=== PATIENT | female | born 1990 | race Caucasian/White ===

== ENCOUNTER 2016-12-11 02:15 | Emergency (ER) | payer BC ==
[2016-12-11] MEDS ORDERED: Ketorolac 30 MG/ML SDV IVPUSH ONE (02:24)
[2016-12-11] MEDS ORDERED: Sodium Chloride 0.9% 1,000 ML IV ONE ×3 (02:24→08:03)
[2016-12-11] MEDS ORDERED: Ondansetron 4 MG/2 ML SDV IVPUSH ONE ×2 (02:24→04:10)
[2016-12-11] MEDS ORDERED: HYDROmorphone 1 MG/ML Syringe IVPUSH ONE ×3 (02:24→06:41)
--- NOTE | 2016-12-11 02:35 | EDM.PDOC ---
<Petar Michelle J - Last Filed: 12/11/16 02:34> ED HPI GENERAL MEDICAL PROBLEM - General Chief Complaint: Flank Pain Stated Complaint: SHARP SIDE PAINS Time Seen by Provider: 12/11/16 02:33 - History of Present Illness INITIAL COMMENTS - FREE TEXT/NARRATIVE: HISTORY AND PHYSICAL: History of present illness: Patient is 26-year-old white female sensory concern of acute right flank pain started suddenly approximately 1 hour prior to arrival associated nausea she denies fever chills denies trauma denies history of urolithiasis Review of systems: As per history of present illness and below otherwise all systems reviewed and negative. Past medical history: As per history of present illness and as reviewed below otherwise noncontributory. Surgical history: As per history of present illness and as reviewed below otherwise noncontributory. Social history: No reported history of drug or alcohol abuse. Family history: As per history of present illness and as reviewed below otherwise noncontributory. Physical exam: HEENT: Atraumatic, normocephalic, pupils reactive, negative for conjunctival pallor or scleral icterus, mucous membranes moist, throat clear, neck supple, nontender, trachea midline. Lungs: Clear to auscultation, breath sounds equal bilaterally, chest nontender. Heart: S1S2, regular, negative for clicks, rubs, or JVD. Abdomen: Soft, nondistended, nontender. Negative for masses or hepatosplenomegaly. Right-sided costovertebral tenderness. Pelvis: Stable nontender. Genitourinary: Deferred. Rectal: Deferred. Extremities: Atraumatic, negative for cords or calf pain. Neurovascular unremarkable. Neuro: Awake, alert, oriented. Cranial nerves II through XII unremarkable. Cerebellum unremarkable. Motor and sensory unremarkable throughout. Exam nonfocal. Diagnostics: CBC CMP UA and UDS CT abdomen and pelvis Therapeutics: Normal saline liter bolus portal 30 mg IV Zofran 4 mg IV Dilaudid 1 mg IV Impression: #1 acute right flank pain Definitive disposition and diagnosis as appropriate pending reevaluation and review of above. Right Flank Pain Score (Numeric/FACES): 10 - Related Data Allergies Allergy/AdvReac Type Severity Reaction Status Date / Time No Known Allergies Allergy Verified 12/11/16 02:18 Home Meds: Home Meds Nitrofurantoin Macrocrystal [Macrodantin] 100 mg PO BID #20 capsule 12/11/16 [Rx ] Tamsulosin HCl [Flomax] 0.4 mg PO DAILY #7 cap.er.24h 12/11/16 [Rx] traMADol [Ultram] 50 mg PO Q8H PRN #10 tablet 12/11/16 [Rx] Past Medical History HEENT History: Reports: None Cardiovascular History: Reports: None Respiratory History: Reports: None Gastrointestinal History: Reports: None Genitourinary History: Reports: None CAMPUS DEAN History: Reports: Musculoskeletal History: Reports: None Neurological History: Reports: None Psychiatric History: Reports: None Endocrine/Metabolic History: Reports: None Hematologic History: Reports: None Immunologic History: Reports: None Oncologic (Cancer) History: Reports: None Dermatologic History: Reports: None - Infectious Disease History Infectious Disease History: Reports: Chicken Pox - Past Surgical History Head Surgeries/Procedures: Reports: None Cardiovascular Surgical History: Reports: None Female Surgical History: Reports: Section Musculoskeletal Surgical History: Reports: None Oncologic Surgical History: Reports: None Social & Family History - Tobacco Use Smoking Status *Q: Never Smoker - Caffeine Use Caffeine Use: Reports: None - Recreational Drug Use Recreational Drug Use: No ED ROS GENERAL - Review of Systems Review Of Systems: ROS reveals no pertinent complaints other than HPI. ED EXAM, GENERAL - Physical Exam Exam: See Below (See dictation) Course - Vital Signs Last Recorded V/S: Last Vital Signs Temp 36.1 C 12/11/16 06:35 Pulse 75 12/11/16 06:35 Resp 17 12/11/16 06:35 BP 154/84 H 12/11/16 06:35 Pulse Ox 100 12/11/16 06:35 - Orders/Labs/Meds Orders: Active Orders 24 hr Category Date Time Status Abdomen Pelvis wo Cont [CT] Stat Exams 12/11/16 02:30 Taken CULTURE URINE [RM] Stat Lab 12/11/16 08:31 Ordered UA W/MICROSCOPIC [URIN] Stat Lab 12/11/16 08:12 Results Sodium Chloride 0.9% [Normal Saline] 1,000 ml Med 12/11/16 08:03 Active IV .Bolus Medication Orders Sodium Chloride (Normal Saline) 1,000 mls @ 999 mls/hr IV .Bolus ONE Stop: 12/11/16 09:03 Labs: Laboratory Tests 12/11/16 12/11/16 12/11/16 Range/Units 02:25 02:25 02:25 WBC 10.83 (4.0-11.0) K/uL RBC 4.37 (4.30-5.90) M/uL Hgb 12.8 (12.0-16.0) g/dL Hct 39.6 (36.0-46.0) % MCV 90.6 (80.0-98.0) fL MCH 29.3 (27.0-32.0) pg MCHC 32.3 (31.0-37.0) g/dL RDW Std Deviation 44.1 (28.0-62.0) fl RDW Coeff of Mitchel 13 (11.0-15.0) % Plt Count 367 (150-400) K/uL MPV 9.90 (7.40-12.00) fL Neut % (Auto) 54.3 (48.0-80.0) % Lymph % (Auto) 37.3 (16.0-40.0) % Upson % (Auto) 6.2 (0.0-15.0) % Eos % (Auto) 1.9 (0.0-7.0) % Baso % (Auto) 0.3 (0.0-1.5) % Neut # (Auto) 5.9 H (1.4-5.7) K/uL Lymph # (Auto) 4.0 H (0.6-2.4) K/uL Upson # (Auto) 0.7 (0.0-0.8) K/uL Eos # (Auto) 0.2 (0.0-0.7) K/uL Baso # (Auto) 0.0 (0.0-0.1) K/uL Nucleated RBC % 0.0 /100WBC Nucleated RBCs # 0 K/uL Sodium 141 (136-146) mmol/L Potassium 3.3 L (3.5-5.1) mmol/L Chloride 108 (98-110) mmol/L Carbon Dioxide 21 (21-31) mmol/L BUN 17 (6.0-23.0) mg/dL Creatinine 0.7 (0.6-1.5) mg/dL Est Cr Clr Drug Dosing 99.86 mL/min Estimated GFR (MDRD) > 60.0 ml/min Glucose 100 (60-110) mg/dL Calcium 9.1 (8.8-10.8) mg/dL Total Bilirubin 0.2 (0.1-1.5) mg/dL AST 17 (5-40) IU/L ALT 17 (8-54) IU/L Alkaline Phosphatase 116 (40-150) Total Protein 7.2 (6.0-8.0) g/dL Albumin 4.1 (3.5-5.0) g/dL Globulin 3.1 (2.0-3.5) g/dL Albumin/Globulin Ratio 1.3 (1.3-2.8) HCG, Qual NEGATIVE (NEG) Urine Color Urine Appearance Urine pH (5.0-8.0) Ur Specific [place] (1.001-1.035) Urine Protein (NEGATIVE) mg/dL Urine Glucose (UA) (NEGATIVE) mg/dL Urine Ketones (NEGATIVE) mg/dL Urine Occult Blood (NEGATIVE) Urine Nitrite (NEGATIVE) Urine Bilirubin (NEGATIVE) Urine Urobilinogen (<2.0) EU/dL Ur Leukocyte Esterase (NEGATIVE) Urine Opiates Screen (NEGATIVE) Ur Oxycodone Screen (NEGATIVE) Urine Methadone Screen (NEGATIVE) Ur Barbiturates Screen (NEGATIVE) Ur Phencyclidine Scrn (NEGATIVE) Ur Amphetamine Screen (NEGATIVE) U Methamphetamines Scrn (NEGATIVE) U Benzodiazepines Scrn (NEGATIVE) U Cocaine Metab Screen (NEGATIVE) U Marijuana (THC) Screen (NEGATIVE) 12/11/16 12/11/16 Range/Units 03:53 08:12 WBC (4.0-11.0) K/uL RBC (4.30-5.90) M/uL Hgb (12.0-16.0) g/dL Hct (36.0-46.0) % MCV (80.0-98.0) fL MCH (27.0-32.0) pg MCHC (31.0-37.0) g/dL RDW Std Deviation (28.0-62.0) fl RDW Coeff of Mitchel (11.0-15.0) % Plt Count (150-400) K/uL MPV (7.40-12.00) fL Neut % (Auto) (48.0-80.0) % Lymph % (Auto) (16.0-40.0) % Upson % (Auto) (0.0-15.0) % Eos % (Auto) (0.0-7.0) % Baso % (Auto) (0.0-1.5) % Neut # (Auto) (1.4-5.7) K/uL Lymph # (Auto) (0.6-2.4) K/uL Upson # (Auto) (0.0-0.8) K/uL Eos # (Auto) (0.0-0.7) K/uL Baso # (Auto) (0.0-0.1) K/uL Nucleated RBC % /100WBC Nucleated RBCs # K/uL Sodium (136-146) mmol/L Potassium (3.5-5.1) mmol/L Chloride (98-110) mmol/L Carbon Dioxide (21-31) mmol/L BUN (6.0-23.0) mg/dL Creatinine (0.6-1.5) mg/dL Est Cr Clr Drug Dosing mL/min Estimated GFR (MDRD) ml/min Glucose (60-110) mg/dL Calcium (8.8-10.8) mg/dL Total Bilirubin (0.1-1.5) mg/dL AST (5-40) IU/L ALT (8-54) IU/L Alkaline Phosphatase (40-150) Total Protein (6.0-8.0) g/dL Albumin (3.5-5.0) g/dL Globulin (2.0-3.5) g/dL Albumin/Globulin Ratio (1.3-2.8) HCG, Qual (NEG) Urine Color YELLOW Urine Appearance CLEAR Urine pH 5.5 (5.0-8.0) Ur Specific [place] >= 1.030 (1.001-1.035) Urine Protein 100 (NEGATIVE) mg/dL Urine Glucose (UA) NEGATIVE (NEGATIVE) mg/dL Urine Ketones NEGATIVE (NEGATIVE) mg/dL Urine Occult Blood LARGE H (NEGATIVE) Urine Nitrite POSITIVE H (NEGATIVE) Urine Bilirubin SMALL H (NEGATIVE) Urine Urobilinogen 0.2 (<2.0) EU/dL Ur Leukocyte Esterase NEGATIVE (NEGATIVE) Urine Opiates Screen NEGATIVE (NEGATIVE) Ur Oxycodone Screen NEGATIVE (NEGATIVE) Urine Methadone Screen NEGATIVE (NEGATIVE) Ur Barbiturates Screen NEGATIVE (NEGATIVE) Ur Phencyclidine Scrn NEGATIVE (NEGATIVE) Ur Amphetamine Screen NEGATIVE (NEGATIVE) U Methamphetamines Scrn NEGATIVE (NEGATIVE) U Benzodiazepines Scrn NEGATIVE (NEGATIVE) U Cocaine Metab Screen NEGATIVE (NEGATIVE) U Marijuana (THC) Screen NEGATIVE (NEGATIVE) Meds: Medications Generic Name Dose Route Start Last Admin Trade Name Freq PRN Reason Stop Dose Admin Sodium Chloride 1,000 mls @ 999 mls/hr 12/11/16 08:03 Normal Saline IV 12/11/16 09:03 .Bolus ONE Discontinued Medications Generic Name Dose Route Start Last Admin Trade Name Freq PRN Reason Stop Dose Admin Hydromorphone HCl 1 mg 12/11/16 02:24 12/11/16 02:33 Dilaudid IVPUSH 12/11/16 02:25 1 mg ONETIME ONE Administration Hydromorphone HCl 1 mg 12/11/16 04:10 12/11/16 04:15 Dilaudid IVPUSH 12/11/16 04:11 1 mg ONETIME ONE Administration Hydromorphone HCl 1 mg 12/11/16 05:13 12/11/16 05:19 Dilaudid IVPUSH 12/11/16 05:14 1 mg ONETIME ONE Administration Hydromorphone HCl 1 mg 12/11/16 06:41 12/11/16 07:37 Dilaudid IVPUSH 12/11/16 06:42 Not Given ONETIME ONE Sodium Chloride 1,000 mls @ 999 mls/hr 12/11/16 02:24 12/11/16 02:31 Normal Saline IV 12/11/16 03:24 999 mls/hr .Bolus ONE Administration Sodium Chloride 1,000 mls @ 500 mls/hr 12/11/16 04:12 12/11/16 04:15 Normal Saline IV 12/11/16 06:11 500 mls/hr .Bolus ONE Administration Ketorolac Tromethamine 30 mg 12/11/16 02:24 12/11/16 02:32 Toradol IVPUSH 12/11/16 02:25 30 mg ONETIME ONE Administration Metoclopramide HCl 10 mg 12/11/16 08:03 Reglan IV 12/11/16 08:04 ONETIME ONE Ondansetron HCl 4 mg 12/11/16 02:24 12/11/16 02:32 Zofran IVPUSH 12/11/16 02:25 4 mg ONETIME ONE Administration Ondansetron HCl 4 mg 12/11/16 04:10 12/11/16 04:16 Zofran IVPUSH 12/11/16 04:11 4 mg ONETIME ONE Administration Tamsulosin HCl 0.4 mg 12/11/16 05:13 12/11/16 05:19 Flomax PO 12/11/16 05:14 0.4 mg ONETIME ONE Administration Departure - Departure Disposition: Home, Self-Care 01 Clinical Impression: Hydronephrosis with urinary obstruction due to ureteral calculus, UTI, Urinary tract infectious disease - Discharge Information Prescriptions: Nitrofurantoin Macrocrystal [Macrodantin] 100 mg PO BID #20 capsule Tamsulosin HCl [Flomax] 0.4 mg PO DAILY #7 cap.er.24h traMADol [Ultram] 50 mg PO Q8H PRN #10 tablet PRN Reason: Pain Referrals: PCP,None [Primary Care Provider] - Renan Martinez MD [Physician] - Forms: ED Department Discharge Additional Instructions: The following information is given to patients seen in the emergency department who are being discharged to home. This information is to outline your options for follow-up care. We provide all patients seen in our emergency department with a follow-up referral. The need for follow-up, as well as the timing and circumstances, are variable depending upon the specifics of your emergency department visit. If you don't have a primary care physician on staff, we will provide you with a referral. We always advise you to contact your personal physician following an emergency department visit to inform them of the circumstance of the visit and for follow-up with them and/or the need for any referrals to a consulting specialist. The emergency department will also refer you to a specialist when appropriate. This referral assures that you have the opportunity for follow-up care with a specialist. All of these measure are taken in an effort to provide you with optimal care, which includes your follow-up. Under all circumstances we always encourage you to contact your private physician who remains a resource for coordinating your care. When calling for follow-up care, please make the office aware that this follow-up is from your recent emergency room visit. If for any reason you are refused follow-up, please contact the [facility] Emergency Department at and asked to speak to the emergency department charge nurse. Take Flomax, tramadol and Bactrim directed follow-up with Dr. Martinez is week, return to ED if symptoms change or worsen. [facility] Specialty Care - Urology [address] [place] [id number] - My Orders Last 24 Hours: My Active Orders 12/11/16 08:03 Sodium Chloride 0.9% [Normal Saline] 1,000 ml IV .Bolus 12/11/16 08:31 CULTURE URINE [RM] Stat - Assessment/Plan Last 24 Hours: My Active Orders 12/11/16 08:03 Sodium Chloride 0.9% [Normal Saline] 1,000 ml IV .Bolus 12/11/16 08:31 CULTURE URINE [RM] Stat <Dacia Cavanaugh - Last Filed: 12/11/16 08:34> Departure - Departure Time of Disposition: 07:27 Condition: Good - My Orders Last 24 Hours: My Active Orders 12/11/16 08:03 Sodium Chloride 0.9% [Normal Saline] 1,000 ml IV .Bolus 12/11/16 08:31 CULTURE URINE [RM] Stat - Assessment/Plan Last 24 Hours: My Active Orders 12/11/16 08:03 Sodium Chloride 0.9% [Normal Saline] 1,000 ml IV .Bolus 12/11/16 08:31 CULTURE URINE [RM] Stat
[2016-12-11 03:01] LABS: CHLORIDE,CL 108 mmol/L (98-110); SODIUM,NA 141 mmol/L (136-146)
[2016-12-11] MEDS ORDERED: HYDROmorphone 2 MG/ML Syringe IVPUSH ONE (04:10)
[2016-12-11] MEDS ORDERED: Tamsulosin 0.4 MG Cap.ER PO ONE (05:13)
[2016-12-11] MEDS ORDERED: Metoclopramide 10 MG/2 ML SDV IV ONE (08:03)
--- NOTE | 2016-12-11 18:29 | CT ---
EXAM DATE: 12/11/16 PATIENT'S AGE: 26 Patient: ADONAY RUFFS DALE Facility: [place], [place] Site . Site : 1990 Study: CT Abdomen/Pelvis [id number] 3:39:19 AM Ordering Physician: Doctor Diamond Final Report: INDICATION: Right flank pain TECHNIQUE: CT abdomen and pelvis without contrast. COMPARISON: None FINDINGS: Lower chest: Unremarkable. Liver: Unremarkable. Spleen: Unremarkable. Pancreas: Unremarkable. Gallbladder and bile ducts: Unremarkable. Kidneys: 2 millimeter obstructing calculus right UVJ with moderate hydronephrosis. Adrenal glands: Unremarkable. GI tract: Unremarkable. Appendix is normal. Vascular structures: Unremarkable. Lymph nodes: Unremarkable. Miscellaneous: Unremarkable. No free air or significant free fluid. Pelvic Organs: Unremarkable. Bones: Unremarkable for age. IMPRESSION: 2 millimeter obstructing calculus right UVJ with moderate hydronephrosis. Dictated by Scott Cabral MD @ 12/11/2016 3:58:48 AM Dictated by: Scott Cabral MD @ 12/11/2016 03:59:02 (Electronic Signature) Report Signed by Proxy. [facility]
== END 2016-12-11 08:50 | disposition home or self-care (01) ==
LOC: MW.ED 02:15
DX: N13.2 Hydronephrosis with renal and ureteral calculous obstruction (principal); N39.0 Urinary tract infection, site not specified; Z79.899 Other long term (current) drug therapy
CPT/HCPCS: 74176; 80053; 80305; 81001; 84703; 85025; 87086; 96361; 96374; 96375; 96376; 99284; A9270; J1170; J1885; J2405; J7040; 87088; 87186

== ENCOUNTER 2017-09-06 05:01 | Inpatient (IN) | payer BC ==
[2017-09-06] MEDS ORDERED: Sodium Chloride 0.9% 10 ML Syringe FLUSH PRN (05:26)
[2017-09-06] MEDS ORDERED: Sodium Chloride 0.9% 2.5 ML Syringe FLUSH PRN (05:26)
[2017-09-06] MEDS ORDERED: ceFAZolin 2 GM in Premix Bag 1 BAG IV ONE (05:26)
[2017-09-06] MEDS ORDERED: Oxytocin/0.9 % Sodium Chloride 30 UNIT/500 ML BAG IV SCH (05:30)
[2017-09-06] MEDS ORDERED: Citric Acid/Sodium Citrate Solution 30 ML Cup PO SCH (05:30)
[2017-09-06] MEDS: Lactated Ringers 1,000 ML IV SCH ×4 (06:45→20:14)
[2017-09-06] MEDS ORDERED: Oxytocin 10 Units/1 ML SDV ONE (07:01)
[2017-09-06] MEDS ORDERED: Morphine PF 1 MG/ML Amp ONE (07:01)
[2017-09-06] MEDS ORDERED: Ondansetron 4 MG/2 ML SDV ONE (07:01)
--- NOTE | 2017-09-06 07:36 | PCM.PREANE ---
Preanesthetic Assessment - Anesthesia/Transfusion/Family Hx Anesthesia History: Prior Anesthesia Without Reaction Family History of Anesthesia Reaction: No Transfusion History: No Prior Transfusion(s) - Review of Systems General: No Symptoms Pulmonary: No Symptoms Cardiovascular: No Symptoms Gastrointestinal: No Symptoms Neurological: No Symptoms - Physical Assessment NPO Status Date: 09/05/17 Vital Signs: Last Vital Signs Temp 36.8 C 09/06/17 05:26 Pulse Resp BP Pulse Ox Height: 1.6 m Weight: 102.512 kg ASA Class: 2 Mental Status: Alert & Oriented x3 Airway Class: Mallampati = 1 Dentition: Reports: Normal Dentition ROM/Head Extension: Full Lungs: Clear to Auscultation, Normal Respiratory Effort Cardiovascular: Regular Rate, Regular Rhythm - Lab Values: Laboratory Last Values WBC 8.34 K/uL (4.0-11.0) 09/06/17 05:53 RBC 3.80 M/uL (4.30-5.90) L 09/06/17 05:53 Hgb 10.8 g/dL (12.0-16.0) L 09/06/17 05:53 Hct 33.1 % (36.0-46.0) L 09/06/17 05:53 MCV 87.1 fL (80.0-98.0) 09/06/17 05:53 MCH 28.4 pg (27.0-32.0) 09/06/17 05:53 MCHC 32.6 g/dL (31.0-37.0) 09/06/17 05:53 RDW Std Deviation 43.4 fl (28.0-62.0) 09/06/17 05:53 RDW Coeff of Mitchel 14 % (11.0-15.0) 09/06/17 05:53 Plt Count 222 K/uL (150-400) 09/06/17 05:53 MPV 11.30 fL (7.40-12.00) 09/06/17 05:53 Nucleated RBC % 0.0 /100WBC 09/06/17 05:53 Nucleated RBCs # 0 K/uL 09/06/17 05:53 - Allergies Allergies/Adverse Reactions: Allergies Allergy/AdvReac Type Severity Reaction Status Date / Time No Known Allergies Allergy Verified 08/31/17 12:54 - Anesthesia Plan Pre-Op Medication Ordered: Antacids - Acknowledgements Anesthesia Type Planned: Spinal Pt an Appropriate Candidate for the Planned Anesthesia: Yes Alternatives and Risks of Anesthesia Discussed w Pt/Guardian: Yes Pt/Guardian Understands and Agrees with Anesthesia Plan: Yes PreAnesthesia Questionnaire HEENT History: Reports: None Cardiovascular History: Reports: None Respiratory History: Reports: None Gastrointestinal History: Reports: Other (See Below) Other Gastrointestinal History: heartburn with Genitourinary History: Reports: Renal Calculus [employer] History: Reports: Other OB/BYN History: previous Musculoskeletal History: Reports: None Neurological History: Reports: None Psychiatric History: Reports: None Endocrine/Metabolic History: Reports: None Hematologic History: Reports: None Immunologic History: Reports: None Oncologic (Cancer) History: Reports: None Dermatologic History: Reports: None - Infectious Disease History Infectious Disease History: Reports: Chicken Pox - Past Surgical History Head Surgeries/Procedures: Reports: None Cardiovascular Surgical History: Reports: None Female Surgical History: Reports: Section Musculoskeletal Surgical History: Reports: None Oncologic Surgical History: Reports: None - SUBSTANCE USE Smoking Status *Q: Never Smoker Recreational Drug Use History: No - HOME MEDS Home Medications: Home Meds Ascorbic Acid [Vitamin C] 500 mg PO DAILY 08/31/17 [History] Pnv No.95/Ferrous Fum/Folic AC [ Multivitamin Tablet] 1 tab PO DAILY [History] - CURRENT (IN HOUSE) MEDS Current Meds: Current Medications Citric Acid/Sodium Citrate (Bicitra Solution) 30 ml PO .ONCE JOHNATHON Lactated Ringer's (Ringers, Lactated) 1,000 mls @ 500 mls/hr IV .BOLUS JOHNATHON Last Admin: 09/06/17 06:45 Dose: 500 mls/hr Oxytocin/Sodium Chloride (Oxytocin 30 Unit/500 Ml-Ns) 30 unit in 500 mls @ 250 mls/hr IV TITRATE JOHNATHON Sodium Chloride (Saline Flush) 10 ml FLUSH ASDIRECTED PRN PRN Reason: Keep Vein Open Sodium Chloride (Saline Flush) 2.5 ml FLUSH ASDIRECTED PRN PRN Reason: Keep Vein Open Discontinued Medications Cefazolin Sodium/Dextrose 2 gm (/ Premix) 50 mls @ 100 mls/hr IV ONETIME ONE Stop: 09/06/17 05:55 Morphine Sulfate (Duramorph Pf) Confirm Administered Dose 1 mg .ROUTE .STK-MED ONE Stop: 09/06/17 07:02 Ondansetron HCl (Zofran) Confirm Administered Dose 4 mg .ROUTE .STK-MED ONE Stop: 09/06/17 07:02 Oxytocin (Pitocin) Confirm Administered Dose 20 unit .ROUTE .STK-MED ONE Stop: 09/06/17 07:02
[2017-09-06] MEDS ORDERED: ePHEDrine 50 MG/ML SDV ONE (08:08)
[2017-09-06] MEDS ORDERED: Phenylephrine/Normal Saline 100 MCG/ML 10 ML Syringe ONE (08:09)
[2017-09-06] MEDS ORDERED: Octyl 2-Cyanoacrylate 1 Tube ONE (08:59)
[2017-09-06] MEDS ORDERED: Ondansetron 4 MG/2 ML SDV IV PRN (09:09)
[2017-09-06] MEDS ORDERED: Acetaminophen/oxyCODONE 325-5 MG Tab PO PRN (09:09)
[2017-09-06] MEDS ORDERED: Aluminum Hydroxide/Magnesium Hydroxide/Simethicone Susp 30 ML Cup PO PRN (09:09)
[2017-09-06] MEDS ORDERED: diphenhydrAMINE 50 MG/ML SDV IVPUSH PRN ×2 (09:09→10:00)
[2017-09-06] MEDS ORDERED: Simethicone 80 MG Tab.Chew PO PRN (09:09)
[2017-09-06] MEDS ORDERED: Lanolin 100% Cream 7 GM Tube TOP PRN (09:09)
[2017-09-06] MEDS ORDERED: Bisacodyl 10 MG Supp RECTAL PRN (09:09)
--- NOTE | 2017-09-06 09:20 | PCM.OPNOTE ---
- General Post-Op/Procedure Note Date of Surgery/Procedure: 09/06/17 Operative Procedure(s): Repeat LTCS Findings: Viable female APGARs 8, 9 weight 2850 gm. Intact placenta with 3V cord. Pre Op Diagnosis: 39 week IUP. Previous c section, desires repeat Post-Op Diagnosis: Same Anesthesia Technique: Spinal Primary Surgeon: Melinda Putnam Fluid Replacement, Intraop: 1,100 EBL in mLs: 600 Complications: none known Condition: Good Free Text/Narrative:: Dictation [id number]
[2017-09-06] MEDS: Ketorolac 30 MG/ML SDV IVPUSH SCH ×3 (09:30→21:16)
[2017-09-06] MEDS ORDERED: Nalbuphine 10 MG/ML 10 ML MDV IVPUSH PRN (10:00)
[2017-09-06] MEDS ORDERED: Naloxone 0.4 MG/ML Syringe IVPUSH PRN (10:00)
--- NOTE | 2017-09-06 10:02 | PCM.POSTAN ---
POST ANESTHESIA ASSESSMENT - MENTAL STATUS Mental Status: Alert, Oriented - RESPIRATORY Respiratory Status: Respiratory Rate WNL, Airway Patent, O2 Saturation Stable - CARDIOVASCULAR CV Status: Pulse Rate WNL, Blood Pressure Stable - GASTROINTESTINAL GI Status: No Symptoms - POST OP HYDRATION Hydration Status: Adequate & Stable
--- NOTE | 2017-09-06 16:12 | OR ---
SURGEON: Melinda Putnam M.D. DATE OF PROCEDURE: 09/06/2017 PREOPERATIVE DIAGNOSES: 1. Thirty-nine week intrauterine . 2. Previous section, desires repeat. POSTOPERATIVE DIAGNOSES: 1. Thirty-nine week intrauterine . 2. Previous section, desires repeat. PROCEDURE: Repeat low transverse section. ANESTHESIA: Spinal. ESTIMATED BLOOD LOSS: 600 mL. FLUIDS: 1100 mL crystalloid. COMPLICATIONS: None known. FINDINGS: Viable female. scores of 8 at 1 minute and 9 at 5 minutes. Weight of 6 pounds 6 ounces or 2850 g. DISPOSITION: The patient to PACU. Infant nursery stable. PROCEDURE IN DETAIL: Naz is a 27-year-old, G2, P1, at 39 weeks' gestational age, who presents today for a scheduled repeat delivery. Risks of the procedure have been discussed with her. Proper consent obtained. The patient was taken back to the OR where she underwent spinal anesthetic, was placed in dorsal supine position with leftward tilt. SCDs to lower extremities. Lynch to gravity. She was prepped and draped in the usual sterile fashion. Received Ancef prophylactically. Time-out was performed. The anesthesia was tested and found to be adequate. Previous Pfannenstiel scar was now excised. The subcutaneous tissue was incised down to the level of the rectus fascia, which was incised in midline, lateralized on either side sharply and bluntly. The superior aspect of the fascia was tented up, dissected sharply and bluntly from underlying muscles. Similar aspect was performed with the inferior aspect of the fascia. Rectus muscles were lateralized bluntly. Peritoneum was entered. Rectus muscles and peritoneum were now lateralized bluntly. The uterine position and position were palpated. A self-retaining retractor was gently placed. Uterovesical reflection was visualized. Bladder flap was created sharply and bluntly. Bladder was mobilized away from the lower uterine segment. Low transverse hysterotomy was now performed. Uterine cavity was entered with blunt end of the scalpel. Hysterotomy was lateralized bluntly. Amniotomy was performed. The infant's head was flexed. Fundal pressure was applied. The infant's head was delivered followed by anterior shoulder, posterior shoulder, and remainder of the body without difficulty. The infant's oropharynx and nares were bulb suctioned. The cord was clamped x2 and cut. was handed off to the attending nursing staff. Cord arterial, cord venous, cord blood samples were obtained. The placenta was now delivered. The uterine cavity was cleared of all clots and debris. Hysterotomy was repaired using 0 Vicryl in a continuous locked fashion followed by a re-imbricating layer. There was a region of bleeding along the uterine vessels on the left side. This was replicated with [id number] suture, and also along the midline once again, replicated with [id number] suture. Hemostasis was thereafter evident. The posterior aspect of the uterus was well irrigated and suction dried. Colonic gutters were cleared of all clot and debris, well irrigated and suction dried. Hysterotomy was again inspected and found to be hemostatic. The self-retaining retractor was now gently removed. The bladder blade was placed. Hysterotomy was inspected and found to be hemostatic. The bladder blade was removed. Rectus muscles and peritoneum were reapproximated using 0 Vicryl with inverted mattress suture technique. Anterior aspect of the muscle and posterior aspect of the fascia were closely inspected. Any areas of oozing were cauterized. The rectus fascia was reapproximated using 0 Vicryl in a continuous running fashion beginning laterally on either side in the midline. Subcutaneous tissue was well irrigated and suction dried. Any areas of oozing were cauterized. Deep subcutaneous tissue was reapproximated using 3-0 plain gut in an interrupted fashion. The region was well irrigated and suction dried. Any areas of oozing were cauterized. The skin edges were reapproximated using 3-0 Vicryl and a Khadar needle in a subcuticular fashion followed by Dermabond. Sponge, instrument, and needle counts were correct x2. The patient tolerated the procedure well. Hemostasis appeared evident. She will go to PACU in stable condition. to nursery. KETAN / NELSY /[id number]
[2017-09-06] MEDS: Docusate Sodium 100 MG Cap PO SCH (21:18)
[2017-09-07] MEDS: Ketorolac 30 MG/ML SDV IVPUSH SCH ×2 (03:19→09:09)
--- NOTE | 2017-09-07 08:31 | PCM.PNPP ---
<Pricila Lozoya - Last Filed: 09/07/17 08:24> - General Info Date of Service: 09/07/17 Functional Status: Reports: Pain Controlled, Tolerating Diet, Ambulating, Urinating - Review of Systems General: Denies: Fever, Weakness, Fatigue Pulmonary: Denies: Shortness of Breath, Pleuritic Chest Pain, Cough Cardiovascular: Denies: Chest Pain, Palpitations, Dyspnea on Exertion Gastrointestinal: Denies: Abdominal Pain Genitourinary: Denies: Dysuria - General Info Date of Service: 09/07/17 - Patient Data Vital Signs - Most Recent: Last Vital Signs Temp 37.1 C 09/07/17 03:21 Pulse 72 09/07/17 03:21 Resp 18 09/07/17 06:00 BP 112/62 09/07/17 03:21 Pulse Ox 97 09/07/17 06:00 Weight - Most Recent: 102.512 kg I&O - Last 24 Hours: Intake & Output 09/06/17 09/07/17 09/07/17 22:59 06:59 14:59 Intake Total 1148 884 Output Total 400 670 Balance 748 214 Lab Results - Last 24 Hours: Laboratory Results - last 24 hr 09/06/17 09/07/17 Range/Units 08:26 05:15 Hgb 8.6 L (12.0-16.0) g/dL Hct 26.2 L (36.0-46.0) % Cord ABG pH 7.317 (7.18-7.38) Cord ABG Base Excess -4 (-10--2) Cord VBG pH 7.436 (7.25-7.45) Cord VBG Base Excess -2 (-10--2) Med Orders - Current: Current Medications Al Hydroxide/Mg Hydroxide (Mag-Al Plus) 30 ml PO Q8H PRN PRN Reason: Heartburn Bisacodyl (Dulcolax) 10 mg RECTAL .ONCE PRN PRN Reason: Constipation Citric Acid/Sodium Citrate (Bicitra Solution) 30 ml PO .ONCE [facility] Last Admin: 09/06/17 07:51 Dose: 30 ml Diphenhydramine HCl (Benadryl) 25 mg IVPUSH Q6H PRN PRN Reason: Itching or Nausea Diphenhydramine HCl (Benadryl) 25 mg IVPUSH Q4H PRN PRN Reason: Itching Stop: 09/07/17 10:00 Last Admin: 09/06/17 10:37 Dose: 25 mg Docusate Sodium (Colace) 100 mg PO BID [facility] Last Admin: 09/06/17 21:18 Dose: 100 mg Emollient Ointment (Lansinoh Hpa) 0 gm TOP ASDIRECTED PRN PRN Reason: Sore Nipples Lactated Ringer's (Ringers, Lactated) 1,000 mls @ 500 mls/hr IV .BOLUS [facility] Last Admin: 09/06/17 07:38 Dose: 500 mls/hr Oxytocin/Sodium Chloride (Oxytocin 30 Unit/500 Ml-Ns) 30 unit in 500 mls @ 250 mls/hr IV TITRATE [facility] Lactated Ringer's (Ringers, Lactated) 1,000 mls @ 125 mls/hr IV ASDIRECTED [facility] Last Admin: 09/06/17 20:14 Dose: 125 mls/hr Ibuprofen (Motrin) 800 mg PO Q8H PRN PRN Reason: mild pain or fever Ketorolac Tromethamine (Toradol) 30 mg IVPUSH Q6H [facility] Stop: 09/07/17 09:16 Last Admin: 09/07/17 03:19 Dose: 30 mg Nalbuphine HCl (Nubain) 5 mg IVPUSH Q3H PRN PRN Reason: Pruritis Stop: 09/07/17 10:00 Naloxone HCl (Narcan) 0.1 mg IVPUSH ONETIME PRN PRN Reason: Respiratory Depression Stop: 09/07/17 10:00 Ondansetron HCl (Zofran) 4 mg IV Q4H PRN PRN Reason: Nausea/Vomiting Oxycodone/Acetaminophen (Percocet 325-5 Mg) 1 tab PO Q4H PRN PRN Reason: Pain (moderate 4-6) Oxycodone/Acetaminophen (Percocet 325-5 Mg) 2 tab PO Q4H PRN PRN Reason: Pain (moderate 4-6) Simethicone (Simethicone) 80 mg PO Q4H PRN PRN Reason: Gas Sodium Chloride (Saline Flush) 10 ml FLUSH ASDIRECTED PRN PRN Reason: Keep Vein Open Sodium Chloride (Saline Flush) 2.5 ml FLUSH ASDIRECTED PRN PRN Reason: Keep Vein Open Discontinued Medications Ephedrine Sulfate (Ephedrine Sulfate) Confirm Administered Dose 50 mg .ROUTE .STK-MED ONE Stop: 09/06/17 08:09 Cefazolin Sodium/Dextrose 2 gm (/ Premix) 50 mls @ 100 mls/hr IV ONETIME ONE Stop: 09/06/17 05:55 Last Admin: 09/06/17 07:42 Dose: 100 mls/hr Morphine Sulfate (Duramorph Pf) Confirm Administered Dose 1 mg .ROUTE .STK-MED ONE Stop: 09/06/17 07:02 Octyl Cyanoacrylate (Dermabond Advance) Confirm Administered Dose 1 applic .ROUTE .STK-MED ONE Stop: 09/06/17 09:00 Ondansetron HCl (Zofran) Confirm Administered Dose 4 mg .ROUTE .STK-MED ONE Stop: 09/06/17 07:02 Oxytocin (Pitocin) Confirm Administered Dose 20 unit .ROUTE .STK-MED ONE Stop: 09/06/17 07:02 Phenylephrine HCl (Phenylephrine In Ns 100 Mcg/Ml) Confirm Administered Dose 1 mg .ROUTE .STK-MED ONE Stop: 09/06/17 08:10 - Interaction Infant Disposition, : [place] in Room with Family Infant Interaction: Holding Feeding: Breastfed Infant; Nursed Well Support Person: - Recovery Exam Fundal Tone: Firm Fundal Level: At Umbilicus Fundal Placement: Midline Lochia Amount: Small Lochia Color: Rubra/Red Perineum Description: Intact, Minimal Bruising/Swelling Episiotomy/Laceration: None Urinary Elimination: Other (see below) (catheter removed this am and has not voided yet) Other Urinary Elimination, : due to void - Exam General: Alert, Oriented Neck: Supple Lungs: Clear to Auscultation, Normal Respiratory Effort Cardiovascular: Regular Rate, Regular Rhythm GI/Abdominal Exam: Normal Bowel Sounds, Soft, Non-Tender, No Distention Extremities: Normal Inspection, Normal Capillary Refill, Pedal Edema (trace) Skin: Warm, Dry, Intact - Problem List & Annotations (1) delivery delivered SNOMED Code(s): 499175650 Code(s): O82 - ENCOUNTER FOR DELIVERY WITHOUT INDICATION Status: Acute Current Visit: Yes - Problem List Review Problem List Initiated/Reviewed/Updated: Yes - Assessment Assessment:: POD #1 s/p RLTCS. Minimal pain and lochia. Breast feeding well. Aim for discharge home tomorrow. - Plan Plan:: Continue routine post-op cares. Anticipate discharge home tomorrow. <Moshe Wolff - Last Filed: 09/07/17 08:49> - Patient Data Vital Signs - Most Recent: Last Vital Signs Temp 37.1 C 09/07/17 03:21 Pulse 72 09/07/17 03:21 Resp 18 09/07/17 06:00 BP 112/62 09/07/17 03:21 Pulse Ox 97 09/07/17 06:00 I&O - Last 24 Hours: Intake & Output 09/06/17 09/07/17 09/07/17 22:59 06:59 14:59 Intake Total 1148 884 Output Total 400 670 Balance 748 214 Lab Results - Last 24 Hours: Laboratory Results - last 24 hr 09/06/17 09/07/17 Range/Units 08:26 05:15 Hgb 8.6 L (12.0-16.0) g/dL Hct 26.2 L (36.0-46.0) % Cord ABG pH 7.317 (7.18-7.38) Cord ABG Base Excess -4 (-10--2) Cord VBG pH 7.436 (7.25-7.45) Cord VBG Base Excess -2 (-10--2) Med Orders - Current: Current Medications Al Hydroxide/Mg Hydroxide (Mag-Al Plus) 30 ml PO Q8H PRN PRN Reason: Heartburn Bisacodyl (Dulcolax) 10 mg RECTAL .ONCE PRN PRN Reason: Constipation Citric Acid/Sodium Citrate (Bicitra Solution) 30 ml PO .ONCE [facility] Last Admin: 09/06/17 07:51 Dose: 30 ml Diphenhydramine HCl (Benadryl) 25 mg IVPUSH Q6H PRN PRN Reason: Itching or Nausea Diphenhydramine HCl (Benadryl) 25 mg IVPUSH Q4H PRN PRN Reason: Itching Stop: 09/07/17 10:00 Last Admin: 09/06/17 10:37 Dose: 25 mg Docusate Sodium (Colace) 100 mg PO BID [facility] Last Admin: 09/06/17 21:18 Dose: 100 mg Emollient Ointment (Lansinoh Hpa) 0 gm TOP ASDIRECTED PRN PRN Reason: Sore Nipples Lactated Ringer's (Ringers, Lactated) 1,000 mls @ 500 mls/hr IV .BOLUS [facility] Last Admin: 09/06/17 07:38 Dose: 500 mls/hr Oxytocin/Sodium Chloride (Oxytocin 30 Unit/500 Ml-Ns) 30 unit in 500 mls @ 250 mls/hr IV TITRATE [facility] Lactated Ringer's (Ringers, Lactated) 1,000 mls @ 125 mls/hr IV ASDIRECTED [facility] Last Admin: 09/06/17 20:14 Dose: 125 mls/hr Ibuprofen (Motrin) 800 mg PO Q8H PRN PRN Reason: mild pain or fever Ketorolac Tromethamine (Toradol) 30 mg IVPUSH Q6H [facility] Stop: 09/07/17 09:16 Last Admin: 09/07/17 03:19 Dose: 30 mg Nalbuphine HCl (Nubain) 5 mg IVPUSH Q3H PRN PRN Reason: Pruritis Stop: 09/07/17 10:00 Naloxone HCl (Narcan) 0.1 mg IVPUSH ONETIME PRN PRN Reason: Respiratory Depression Stop: 09/07/17 10:00 Ondansetron HCl (Zofran) 4 mg IV Q4H PRN PRN Reason: Nausea/Vomiting Oxycodone/Acetaminophen (Percocet 325-5 Mg) 1 tab PO Q4H PRN PRN Reason: Pain (moderate 4-6) Oxycodone/Acetaminophen (Percocet 325-5 Mg) 2 tab PO Q4H PRN PRN Reason: Pain (moderate 4-6) Simethicone (Simethicone) 80 mg PO Q4H PRN PRN Reason: Gas Sodium Chloride (Saline Flush) 10 ml FLUSH ASDIRECTED PRN PRN Reason: Keep Vein Open Sodium Chloride (Saline Flush) 2.5 ml FLUSH ASDIRECTED PRN PRN Reason: Keep Vein Open Discontinued Medications Ephedrine Sulfate (Ephedrine Sulfate) Confirm Administered Dose 50 mg .ROUTE .ST-MED ONE Stop: 09/06/17 08:09 Cefazolin Sodium/Dextrose 2 gm (/ Premix) 50 mls @ 100 mls/hr IV ONETIME ONE Stop: 09/06/17 05:55 Last Admin: 09/06/17 07:42 Dose: 100 mls/hr Morphine Sulfate (Duramorph Pf) Confirm Administered Dose 1 mg .ROUTE .STK-MED ONE Stop: 09/06/17 07:02 Octyl Cyanoacrylate (Dermabond Advance) Confirm Administered Dose 1 applic .ROUTE .STK-MED ONE Stop: 09/06/17 09:00 Ondansetron HCl (Zofran) Confirm Administered Dose 4 mg .ROUTE .STK-MED ONE Stop: 09/06/17 07:02 Oxytocin (Pitocin) Confirm Administered Dose 20 unit .ROUTE .STK-MED ONE Stop: 09/06/17 07:02 Phenylephrine HCl (Phenylephrine In Ns 100 Mcg/Ml) Confirm Administered Dose 1 mg .ROUTE .STK-MED ONE Stop: 09/06/17 08:10 - Problem List & Annotations (1) delivery delivered SNOMED Code(s): 753170071 Code(s): O82 - ENCOUNTER FOR DELIVERY WITHOUT INDICATION Status: Acute Current Visit: Yes - Plan Plan:: POD 1 stable, denies any complain , ambulating and tolerating regular diet , alexandre out - yet to void
[2017-09-07] MEDS: Docusate Sodium 100 MG Cap PO SCH (09:09)
[2017-09-07] MEDS: Acetaminophen/oxyCODONE 325-5 MG Tab PO PRN (13:13)
[2017-09-07] MEDS: Ibuprofen 800 MG Tab PO PRN (17:12)
[2017-09-08] MEDS: Docusate Sodium 100 MG Cap PO SCH ×2 (00:51→08:37)
--- NOTE | 2017-09-08 07:35 | PCM48HPAN ---
Post Anesthesia Note - EVALUATION WITHIN 48HRS OF ANESTHETIC Vital Signs in Normal Range: Yes Patient Participated in Evaluation: Yes Respiratory Function Stable: Yes Airway Patent: Yes Cardiovascular Function Stable: Yes Hydration Status Stable: Yes Pain Control Satisfactory: Yes Nausea and Vomiting Control Satisfactory: Yes Mental Status Recovered: Yes Resp Rate: 18
[2017-09-08] MEDS: Ibuprofen 800 MG Tab PO PRN (08:37)
[2017-09-08] MEDS: Acetaminophen/oxyCODONE 325-5 MG Tab PO PRN (08:38)
--- NOTE | 2017-09-08 09:04 | PCM.PNPP ---
- General Info Date of Service: 09/08/17 Functional Status: Reports: Pain Controlled, Tolerating Diet, Ambulating, Urinating - Review of Systems General: Denies: Fever, Weakness, Fatigue Pulmonary: Denies: Shortness of Breath Cardiovascular: Denies: Chest Pain, Palpitations, Lightheadedness Gastrointestinal: Reports: Abdominal Pain (incisional but well controlled), Flatus. Denies: Nausea, Vomiting Psychiatric: Reports: No Symptoms - Patient Data Vital Signs - Most Recent: Last Vital Signs Temp 36.7 C 09/08/17 04:00 Pulse 86 09/08/17 04:00 Resp 18 09/08/17 07:35 BP 126/64 09/08/17 04:00 Pulse Ox 97 09/08/17 04:00 Weight - Most Recent: 102.512 kg Med Orders - Current: Current Medications Al Hydroxide/Mg Hydroxide (Mag-Al Plus) 30 ml PO Q8H PRN PRN Reason: Heartburn Bisacodyl (Dulcolax) 10 mg RECTAL .ONCE PRN PRN Reason: Constipation Citric Acid/Sodium Citrate (Bicitra Solution) 30 ml PO .ONCE [facility] Last Admin: 09/06/17 07:51 Dose: 30 ml Diphenhydramine HCl (Benadryl) 25 mg IVPUSH Q6H PRN PRN Reason: Itching or Nausea Docusate Sodium (Colace) 100 mg PO BID [facility] Last Admin: 09/08/17 08:37 Dose: 100 mg Emollient Ointment (Lansinoh Hpa) 0 gm TOP ASDIRECTED PRN PRN Reason: Sore Nipples Lactated Ringer's (Ringers, Lactated) 1,000 mls @ 500 mls/hr IV .BOLUS [facility] Last Admin: 09/06/17 07:38 Dose: 500 mls/hr Oxytocin/Sodium Chloride (Oxytocin 30 Unit/500 Ml-Ns) 30 unit in 500 mls @ 250 mls/hr IV TITRATE [facility] Lactated Ringer's (Ringers, Lactated) 1,000 mls @ 125 mls/hr IV ASDIRECTED [facility] Last Admin: 09/06/17 20:14 Dose: 125 mls/hr Ibuprofen (Motrin) 800 mg PO Q8H PRN PRN Reason: mild pain or fever Last Admin: 09/08/17 08:37 Dose: 800 mg Ondansetron HCl (Zofran) 4 mg IV Q4H PRN PRN Reason: Nausea/Vomiting Oxycodone/Acetaminophen (Percocet 325-5 Mg) 1 tab PO Q4H PRN PRN Reason: Pain (moderate 4-6) Last Admin: 09/08/17 08:38 Dose: 1 tab Oxycodone/Acetaminophen (Percocet 325-5 Mg) 2 tab PO Q4H PRN PRN Reason: Pain (moderate 4-6) Last Admin: 09/08/17 00:51 Dose: 2 tab Simethicone (Simethicone) 80 mg PO Q4H PRN PRN Reason: Gas Sodium Chloride (Saline Flush) 10 ml FLUSH ASDIRECTED PRN PRN Reason: Keep Vein Open Sodium Chloride (Saline Flush) 2.5 ml FLUSH ASDIRECTED PRN PRN Reason: Keep Vein Open Discontinued Medications Diphenhydramine HCl (Benadryl) 25 mg IVPUSH Q4H PRN PRN Reason: Itching Stop: 09/07/17 10:00 Last Admin: 09/06/17 10:37 Dose: 25 mg Ephedrine Sulfate (Ephedrine Sulfate) Confirm Administered Dose 50 mg .ROUTE .STK-MED ONE Stop: 09/06/17 08:09 Cefazolin Sodium/Dextrose 2 gm (/ Premix) 50 mls @ 100 mls/hr IV ONETIME ONE Stop: 09/06/17 05:55 Last Admin: 09/06/17 07:42 Dose: 100 mls/hr Ketorolac Tromethamine (Toradol) 30 mg IVPUSH Q6H [facility] Stop: 09/07/17 09:16 Last Admin: 09/07/17 09:09 Dose: 30 mg Morphine Sulfate (Duramorph Pf) Confirm Administered Dose 1 mg .ROUTE .STK-MED ONE Stop: 09/06/17 07:02 Nalbuphine HCl (Nubain) 5 mg IVPUSH Q3H PRN PRN Reason: Pruritis Stop: 09/07/17 10:00 Naloxone HCl (Narcan) 0.1 mg IVPUSH ONETIME PRN PRN Reason: Respiratory Depression Stop: 09/07/17 10:00 Octyl Cyanoacrylate (Dermabond Advance) Confirm Administered Dose 1 applic .ROUTE .STK-MED ONE Stop: 09/06/17 09:00 Ondansetron HCl (Zofran) Confirm Administered Dose 4 mg .ROUTE .STK-MED ONE Stop: 09/06/17 07:02 Oxytocin (Pitocin) Confirm Administered Dose 20 unit .ROUTE .STK-MED ONE Stop: 09/06/17 07:02 Phenylephrine HCl (Phenylephrine In Ns 100 Mcg/Ml) Confirm Administered Dose 1 mg .ROUTE .STK-MED ONE Stop: 09/06/17 08:10 - Interaction Infant Disposition, : [place] in Room with Family Interaction: Holding Infant Feeding: Breastfed ; Nursed Well Support Person: - Recovery Exam Fundal Tone: Firm Fundal Level: At Umbilicus Fundal Placement: Midline Lochia Amount: Scant Lochia Color: Rubra/Red Perineum Description: Intact, Minimal Bruising/Swelling Episiotomy/Laceration: None Bladder Status: Voiding Urinary Elimination: Voided Other Urinary Elimination, : due to void - Exam General: Alert, Oriented Lungs: Normal Respiratory Effort Cardiovascular: Regular Rate, Regular Rhythm GI/Abdominal Exam: Normal Bowel Sounds, Soft Extremities: Pedal Edema (1+). No: Osmin's Sign Skin: Warm, Dry, Intact Wound/Incisions: Healing Well, No Drainage. No: Erythema Psy/Mental Status: Alert, Normal Affect - Problem List & Annotations (1) delivery delivered SNOMED Code(s): 007107610 Code(s): O82 - ENCOUNTER FOR DELIVERY WITHOUT INDICATION Status: Acute Current Visit: Yes - Problem List Review Problem List Initiated/Reviewed/Updated: Yes - My Orders Last 24 Hours: My Active Orders 09/08/17 09:01 Ready for Discharge [RC] PER UNIT ROUTINE - Assessment Assessment:: POD #2 s/p RLTCS. - Plan Plan:: Patient is doing well overall--would like to go home today. Discharge instructions reviewed. Follow up at [facility] 2 and 6 weeks. Discharge to home. Infection and bleeding warnings reviewed.
== END 2017-09-08 12:55 | disposition home or self-care (01) | DRG 540 ==
LOC: MW.OB 05:01
PROVIDERS: ADMIT Obstetrics & Gynecology; ATTEND Obstetrics & Gynecology
PROC: 10D00Z1 Extraction of Products of Conception, Low, Open Approach (ICD-10-PCS; principal; 2017-09-06)
DX: O34.211 Maternal care for low transverse scar from previous cesarean delivery (principal); Z3A.39 39 weeks gestation of pregnancy; Z37.0 Single live birth
CPT/HCPCS: 36415; 59025; 82803; 85014; 85018; 85027; 86156; 86850; 86900; 86901; A9270-GY; J0690; J1200; J1885; J2274; J2370; J2405; J2590; J7120

== ENCOUNTER 2022-11-14 12:00 | Emergency (ER) | payer BC, MEDICAID ==
[2022-11-14] MEDS ORDERED: Dexamethasone 10 MG/ML SDV PO ONE (12:45)
[2022-11-14] MEDS ORDERED: Lidocaine 2% Viscous Solution 15 ML UD PO ONE (12:46)
== END 2022-11-14 13:12 | disposition left against medical advice (07) ==
LOC: MW.ED 12:00
DX: J02.9 Acute pharyngitis, unspecified (principal)
CPT/HCPCS: 87651-QW; 99282; 99283

== ENCOUNTER 2023-12-08 01:07 | Emergency (ER) | payer MEDICAID ==
[2023-12-08] MEDS: Cyclobenzaprine 10 MG Tab PO ONE (01:38)
[2023-12-08] MEDS: Acetaminophen/HYDROcodone 325-5 MG Tab PO ONE (01:38)
[2023-12-08] MEDS: Ketorolac 60 MG/2 ML SDV IM ONE (01:41)
== END 2023-12-08 02:22 | disposition home or self-care (01) ==
LOC: MW.ED 01:07
DX: J06.9 Acute upper respiratory infection, unspecified (principal); M54.2 Cervicalgia; Z91.018 Allergy to other foods; Z79.899 Other long term (current) drug therapy; Z75.8 Other problems related to medical facilities and other health care
CPT/HCPCS: 99283; A9270